=== PATIENT | male | born 1945 | race Caucasian/White ===

== ENCOUNTER 2019-11-17 09:21 | Inpatient (IN) ==
[2019-11-17] MEDS ORDERED: D5% in Water 1,000 ML IVC PRN (15:40)
[2019-11-17] MEDS ORDERED: *HR* Dextrose 50 % in Water (Syg) 50 ML SYRINGE IVP PRN (15:40)
[2019-11-17] MEDS ORDERED: Dextrose Gel 15 GM/37.5 ML TUBE PO PRN ×2 (15:40)
[2019-11-17] MEDS ORDERED: Hydrocortisone Rectal 2.5% CRM 28 GM TUBE RC PRN (15:44)
[2019-11-17] MEDS ORDERED: Triamcinolone Acet 0.1% CRM 15 GM TUBE TP PRN (15:44)
[2019-11-17] MEDS ORDERED: Nitroglycerin 0.4 MG TAB.SUBL SL PRN (15:44)
[2019-11-17] MEDS: *HR* Metformin 500 MG TABLET PO SCH (18:14)
[2019-11-17] MEDS: Insulin LISPRO 300 UNITS/3 ML VIAL SQ SCH ×2 (18:15→22:22)
[2019-11-17 18:54] LABS: Bilirubin,Urine Negative (Negative); Blood,Urine Trace-intact (Negative); Clarity,Urine Clear (Clear); Color,Urine Yellow (Yellow); Glucose,Urine (UA) Normal (Normal); Ketones,Urine Negative (Negative); Leukocyte Esterase,Urine Negative (Negative); Nitrite,Urine Negative (Negative); PH,Urine 8.5 pH Units (5.0-8.0); Protein,Urine Negative (Neg-Trace); Urobilinogen,Urine Normal (Normal)
[2019-11-17 19:00] LABS: RBC,Urine 0-3 per hpf (0-3); Squamous Epithelial Cell,Urine Few per hpf (None-Few); WBC,Urine 0-3 per hpf (0-3)
[2019-11-17 19:01] LABS: Bacteria,Urine None Seen per hpf (None-Few)
[2019-11-17] MEDS: metroNIDAZOLE 500 MG TABLET PO SCH (22:21)
[2019-11-17] MEDS: Gabapentin 300 MG CAPSULE PO SCH (22:22)
[2019-11-17] MEDS: Sulfamethoxazole/Trimeth DS 1 EACH TABLET PO SCH (22:22)
[2019-11-18] MEDS: *HR* OxyCODONE Immed Rel 5 MG TABLET PO PRN ×2 (01:55→15:01)
[2019-11-18] MEDS ORDERED: *HR* Enoxaparin 40 MG/0.4 ML SYRINGE SQ SCH (06:00)
[2019-11-18 06:16] LABS: Basophils % 0.2 %; Eosinophils # 0.3 K/mcL (0.0-0.6); Eosinophils % 1.8 %; Hematocrit 32.5 % (37.5-50.1); Hemoglobin 9.9 g/dL (12.9-16.9); Immature Granulocytes % 0.4 % (0-4); Lymphocytes # 2.8 K/mcL (0.6-4.6); Lymphocytes % 17.3 %; Mean Corpuscular HGB Conc 30.5 g/dL (31.6-35.5); Mean Corpuscular Hemoglobin 28.5 pg (28.0-33.3); Mean Corpuscular Volume 93.7 fL (83.0-100.0); Mean Platelet Volume 10.3 fL (9.4-12.4); Monocytes # 1.4 K/mcL (0.0-1.3); Monocytes % 8.5 %; Neutrophils # 11.5 K/mcL (1.6-8.9); Platelet Count 321 K/mcL (140-400); Red Blood Count 3.47 M/mcL (4.19-5.50); Red Cell Distribution Width 19.4 % (11.5-14.5); Segmented Neutrophils % 71.8 %
[2019-11-18] MEDS: Insulin LISPRO 300 UNITS/3 ML VIAL SQ SCH ×4 (07:47→23:15)
[2019-11-18] MEDS: *HR* Metformin 500 MG TABLET PO SCH ×2 (08:02→17:10)
[2019-11-18] MEDS: Isosorbide MONOnitrate (24 HR) 60 MG TAB.ER.24H PO SCH (08:05)
[2019-11-18] MEDS: Gabapentin 300 MG CAPSULE PO SCH ×3 (08:05→23:19)
[2019-11-18] MEDS: Metoprolol XL (24 HR) Succ 25 MG TAB.ER.24H PO SCH (08:05)
[2019-11-18] MEDS: predniSONE 10 MG TABLET PO SCH (08:05)
[2019-11-18] MEDS: Aspirin Enteric Coated 81 MG Tablet PO SCH (08:06)
[2019-11-18] MEDS: Sulfamethoxazole/Trimeth DS 1 EACH TABLET PO SCH ×2 (08:06→23:19)
[2019-11-18 08:52] LABS: BUN/Creatinine Ratio 14 (6-26); Blood Urea Nitrogen 10 mg/dL (8-23); Calcium 7.6 mg/dL (8.6-10.3); Carbon Dioxide 26 mEq/L (23-29); Chloride 104 mEq/L (98-107); Glucose 80 mg/dL (70-105); Osmolality,Calculated 278 (280-300); Sodium 135 mEq/L (136-145); eGFR For African Americans > 60 (> 60); eGFR For Non-African Americans > 60 (> 60)
[2019-11-18] MEDS: metroNIDAZOLE 500 MG TABLET PO SCH ×3 (09:11→23:19)
[2019-11-18] MEDS ORDERED: INFLIXIMAB DYYB IVPB SCH (11:00)
[2019-11-18] MEDS ORDERED: SODIUM CHLORIDE 0.9% IVPB SCH (11:00)
[2019-11-19 06:00] LABS: Basophils % 0.1 %; Eosinophils # 0.2 K/mcL (0.0-0.6); Eosinophils % 1.7 %; Hematocrit 32.2 % (37.5-50.1); Immature Granulocytes % 0.4 % (0-4); Lymphocytes # 2.5 K/mcL (0.6-4.6); Lymphocytes % 18.6 %; Mean Corpuscular HGB Conc 31.1 g/dL (31.6-35.5); Mean Corpuscular Hemoglobin 28.7 pg (28.0-33.3); Mean Corpuscular Volume 92.3 fL (83.0-100.0); Mean Platelet Volume 8.7 fL (9.4-12.4); Monocytes # 1.1 K/mcL (0.0-1.3); Monocytes % 8.4 %; Neutrophils # 9.6 K/mcL (1.6-8.9); Platelet Count 438 K/mcL (140-400); Red Blood Count 3.49 M/mcL (4.19-5.50); Red Cell Distribution Width 19.3 % (11.5-14.5); Segmented Neutrophils % 70.8 %; White Blood Count 13.6 K/mcL (4.3-11.1)
[2019-11-19 06:16] LABS: BUN/Creatinine Ratio 14 (6-26); Blood Urea Nitrogen 9 mg/dL (8-23); Calcium 7.7 mg/dL (8.6-10.3); Carbon Dioxide 24 mEq/L (23-29); Chloride 107 mEq/L (98-107); Glucose 82 mg/dL (70-105); Osmolality,Calculated 282 (280-300); Sodium 137 mEq/L (136-145); eGFR For African Americans > 60 (> 60); eGFR For Non-African Americans > 60 (> 60)
[2019-11-19] MEDS: *HR* OxyCODONE Immed Rel 5 MG TABLET PO PRN (07:44)
[2019-11-19] MEDS: Insulin LISPRO 300 UNITS/3 ML VIAL SQ SCH ×4 (10:21→20:46)
[2019-11-19] MEDS: Isosorbide MONOnitrate (24 HR) 60 MG TAB.ER.24H PO SCH (10:25)
[2019-11-19] MEDS: predniSONE 10 MG TABLET PO SCH (10:25)
[2019-11-19] MEDS: *HR* Metformin 500 MG TABLET PO SCH ×2 (10:26→16:53)
[2019-11-19] MEDS: Metoprolol XL (24 HR) Succ 25 MG TAB.ER.24H PO SCH (10:26)
[2019-11-19] MEDS: metroNIDAZOLE 500 MG TABLET PO SCH ×3 (10:26→20:46)
[2019-11-19] MEDS: Gabapentin 300 MG CAPSULE PO SCH ×3 (10:26→20:44)
[2019-11-19] MEDS: Aspirin Enteric Coated 81 MG Tablet PO SCH (10:26)
[2019-11-19] MEDS: Sulfamethoxazole/Trimeth DS 1 EACH TABLET PO SCH ×2 (10:26→20:43)
[2019-11-20] MEDS: *HR* OxyCODONE Immed Rel 5 MG TABLET PO PRN ×3 (02:05→22:15)
[2019-11-20 06:17] LABS: Basophils % 0.1 %; Eosinophils # 0.2 K/mcL (0.0-0.6); Eosinophils % 1.1 %; Hematocrit 27.5 % (37.5-50.1); Hemoglobin 8.4 g/dL (12.9-16.9); Immature Granulocytes % 0.7 % (0-4); Lymphocytes # 2.4 K/mcL (0.6-4.6); Mean Corpuscular HGB Conc 30.5 g/dL (31.6-35.5); Mean Corpuscular Volume 91.7 fL (83.0-100.0); Mean Platelet Volume 9.1 fL (9.4-12.4); Monocytes # 1.4 K/mcL (0.0-1.3); Monocytes % 9.5 %; Neutrophils # 10.8 K/mcL (1.6-8.9); Platelet Count 436 K/mcL (140-400); Red Cell Distribution Width 18.8 % (11.5-14.5); Segmented Neutrophils % 72.6 %; White Blood Count 14.9 K/mcL (4.3-11.1)
[2019-11-20 06:31] LABS: BUN/Creatinine Ratio 16 (6-26); Blood Urea Nitrogen 13 mg/dL (8-23); Calcium 7.6 mg/dL (8.6-10.3); Carbon Dioxide 24 mEq/L (23-29); Chloride 108 mEq/L (98-107); Glucose 108 mg/dL (70-105); Osmolality,Calculated 283 (280-300); Sodium 136 mEq/L (136-145); eGFR For African Americans > 60 (> 60); eGFR For Non-African Americans > 60 (> 60)
[2019-11-20] MEDS: Insulin LISPRO 300 UNITS/3 ML VIAL SQ SCH ×4 (08:35→22:23)
[2019-11-20] MEDS: Isosorbide MONOnitrate (24 HR) 60 MG TAB.ER.24H PO SCH ×2 (09:23→10:08)
[2019-11-20] MEDS: *HR* Metformin 500 MG TABLET PO SCH ×2 (09:23→15:45)
[2019-11-20] MEDS: predniSONE 10 MG TABLET PO SCH (09:23)
[2019-11-20] MEDS: Aspirin Enteric Coated 81 MG Tablet PO SCH (09:23)
[2019-11-20] MEDS: Sulfamethoxazole/Trimeth DS 1 EACH TABLET PO SCH ×2 (09:24→22:14)
[2019-11-20] MEDS: Gabapentin 300 MG CAPSULE PO SCH ×3 (09:24→22:14)
[2019-11-20] MEDS: metroNIDAZOLE 500 MG TABLET PO SCH ×3 (09:24→22:17)
[2019-11-20] MEDS: Metoprolol XL (24 HR) Succ 25 MG TAB.ER.24H PO SCH (16:10)
[2019-11-21] MEDS: *HR* OxyCODONE Immed Rel 5 MG TABLET PO PRN ×2 (04:24→23:12)
[2019-11-21 05:29] LABS: Basophils % 0.2 %; Eosinophils # 0.1 K/mcL (0.0-0.6); Eosinophils % 0.9 %; Hematocrit 26.3 % (37.5-50.1); Hemoglobin 8.1 g/dL (12.9-16.9); Immature Granulocytes % 0.5 % (0-4); Lymphocytes # 1.6 K/mcL (0.6-4.6); Mean Corpuscular HGB Conc 30.8 g/dL (31.6-35.5); Mean Corpuscular Hemoglobin 28.4 pg (28.0-33.3); Mean Corpuscular Volume 92.3 fL (83.0-100.0); Monocytes # 1.4 K/mcL (0.0-1.3); Monocytes % 10.9 %; Neutrophils # 9.4 K/mcL (1.6-8.9); Platelet Count 398 K/mcL (140-400); Red Blood Count 2.85 M/mcL (4.19-5.50); Red Cell Distribution Width 18.7 % (11.5-14.5); Segmented Neutrophils % 74.5 %; White Blood Count 12.6 K/mcL (4.3-11.1)
[2019-11-21] MEDS: Insulin LISPRO 300 UNITS/3 ML VIAL SQ SCH ×4 (08:16→22:00)
[2019-11-21] MEDS: *HR* Metformin 500 MG TABLET PO SCH ×2 (08:26→16:52)
[2019-11-21] MEDS: Sulfamethoxazole/Trimeth DS 1 EACH TABLET PO SCH ×2 (08:27→22:03)
[2019-11-21] MEDS: Isosorbide MONOnitrate (24 HR) 60 MG TAB.ER.24H PO SCH (08:27)
[2019-11-21] MEDS: Aspirin Enteric Coated 81 MG Tablet PO SCH (08:27)
[2019-11-21] MEDS: Gabapentin 300 MG CAPSULE PO SCH ×3 (08:27→22:03)
[2019-11-21] MEDS: metroNIDAZOLE 500 MG TABLET PO SCH ×3 (08:27→22:03)
[2019-11-21] MEDS: predniSONE 10 MG TABLET PO SCH (08:27)
[2019-11-21 19:37] LABS: Hemoglobin 8.1 g/dL (12.9-16.9)
[2019-11-22 05:31] LABS: Basophils % 0.2 %; Eosinophils # 0.1 K/mcL (0.0-0.6); Eosinophils % 0.4 %; Hematocrit 26.2 % (37.5-50.1); Hemoglobin 8.2 g/dL (12.9-16.9); Immature Granulocytes % 0.4 % (0-4); Lymphocytes # 1.5 K/mcL (0.6-4.6); Lymphocytes % 10.9 %; Mean Corpuscular HGB Conc 31.3 g/dL (31.6-35.5); Mean Corpuscular Hemoglobin 29.1 pg (28.0-33.3); Mean Corpuscular Volume 92.9 fL (83.0-100.0); Mean Platelet Volume 8.9 fL (9.4-12.4); Monocytes # 1.2 K/mcL (0.0-1.3); Monocytes % 8.8 %; Neutrophils # 10.7 K/mcL (1.6-8.9); Platelet Count 385 K/mcL (140-400); Red Blood Count 2.82 M/mcL (4.19-5.50); Red Cell Distribution Width 18.7 % (11.5-14.5); Segmented Neutrophils % 79.3 %; White Blood Count 13.5 K/mcL (4.3-11.1)
[2019-11-22 05:45] LABS: BUN/Creatinine Ratio 11 (6-26); Blood Urea Nitrogen 9 mg/dL (8-23); Calcium 7.8 mg/dL (8.6-10.3); Carbon Dioxide 23 mEq/L (23-29); Chloride 103 mEq/L (98-107); Glucose 88 mg/dL (70-105); Osmolality,Calculated 272 (280-300); Potassium 4.2 mEq/L (3.5-5.1); Sodium 132 mEq/L (136-145); eGFR For African Americans > 60 (> 60); eGFR For Non-African Americans > 60 (> 60)
[2019-11-22] MEDS: Insulin LISPRO 300 UNITS/3 ML VIAL SQ SCH ×4 (08:04→20:33)
[2019-11-22] MEDS: Isosorbide MONOnitrate (24 HR) 60 MG TAB.ER.24H PO SCH (10:04)
[2019-11-22] MEDS: Gabapentin 300 MG CAPSULE PO SCH ×3 (10:05→21:13)
[2019-11-22] MEDS: predniSONE 10 MG TABLET PO SCH (10:05)
[2019-11-22] MEDS: *HR* Metformin 500 MG TABLET PO SCH ×2 (10:05→16:01)
[2019-11-22] MEDS: metroNIDAZOLE 500 MG TABLET PO SCH ×3 (10:05→21:14)
[2019-11-22] MEDS: Sulfamethoxazole/Trimeth DS 1 EACH TABLET PO SCH ×2 (10:05→21:14)
[2019-11-22] MEDS: Aspirin Enteric Coated 81 MG Tablet PO SCH (10:05)
[2019-11-22] MEDS: *HR* OxyCODONE Immed Rel 5 MG TABLET PO PRN ×2 (10:56→22:34)
[2019-11-22] MEDS ORDERED: methylPREDNISolone 125 MG/2 ML VIAL IVP ONE (13:35)
[2019-11-22 21:33] LABS: BUN/Creatinine Ratio 12 (6-26); Blood Urea Nitrogen 12 mg/dL (8-23); Calcium 7.5 mg/dL (8.6-10.3); Carbon Dioxide 22 mEq/L (23-29); Chloride 102 mEq/L (98-107); Glucose 176 mg/dL (70-105); Osmolality,Calculated 274 (280-300); Potassium 4.5 mEq/L (3.5-5.1); Sodium 130 mEq/L (136-145); eGFR For African Americans > 60 (> 60); eGFR For Non-African Americans > 60 (> 60)
[2019-11-22 21:36] LABS: Basophils % 0.1 %; Hematocrit 24.4 % (37.5-50.1); Hemoglobin 7.6 g/dL (12.9-16.9); Immature Granulocytes % 0.6 % (0-4); Lymphocytes # 0.3 K/mcL (0.6-4.6); Lymphocytes % 2.3 %; Mean Corpuscular HGB Conc 31.1 g/dL (31.6-35.5); Mean Corpuscular Hemoglobin 28.8 pg (28.0-33.3); Mean Corpuscular Volume 92.4 fL (83.0-100.0); Mean Platelet Volume 8.9 fL (9.4-12.4); Monocytes # 0.2 K/mcL (0.0-1.3); Monocytes % 1.8 %; Platelet Count 333 K/mcL (140-400); Red Blood Count 2.64 M/mcL (4.19-5.50); Red Cell Distribution Width 18.5 % (11.5-14.5); Segmented Neutrophils % 95.2 %; White Blood Count 12.6 K/mcL (4.3-11.1)
[2019-11-23] MEDS ORDERED: 0.9 % Sodium Chloride 500 ML ONE (00:50)
[2019-11-23 07:34] LABS: Basophils % 0.1 %; Immature Granulocytes % 0.4 % (0-4); Lymphocytes # 0.8 K/mcL (0.6-4.6); Lymphocytes % 6.2 %; Mean Corpuscular HGB Conc 32.1 g/dL (31.6-35.5); Mean Corpuscular Hemoglobin 29.3 pg (28.0-33.3); Mean Corpuscular Volume 91.2 fL (83.0-100.0); Mean Platelet Volume 8.4 fL (9.4-12.4); Monocytes % 7.5 %; Neutrophils # 11.6 K/mcL (1.6-8.9); Platelet Count 320 K/mcL (140-400); Red Blood Count 3.07 M/mcL (4.19-5.50); Red Cell Distribution Width 17.9 % (11.5-14.5); Segmented Neutrophils % 85.8 %; White Blood Count 13.5 K/mcL (4.3-11.1)
[2019-11-23] MEDS: Insulin LISPRO 300 UNITS/3 ML VIAL SQ SCH ×4 (07:55→20:03)
[2019-11-23 08:03] LABS: BUN/Creatinine Ratio 17 (6-26); Blood Urea Nitrogen 15 mg/dL (8-23); Calcium 7.7 mg/dL (8.6-10.3); Carbon Dioxide 24 mEq/L (23-29); Chloride 100 mEq/L (98-107); Glucose 81 mg/dL (70-105); Osmolality,Calculated 272 (280-300); Potassium 3.7 mEq/L (3.5-5.1); Sodium 131 mEq/L (136-145); eGFR For African Americans > 60 (> 60); eGFR For Non-African Americans > 60 (> 60)
[2019-11-23] MEDS: Gabapentin 300 MG CAPSULE PO SCH ×3 (09:45→20:09)
[2019-11-23] MEDS: Aspirin Enteric Coated 81 MG Tablet PO SCH (09:45)
[2019-11-23] MEDS: Sulfamethoxazole/Trimeth DS 1 EACH TABLET PO SCH ×2 (09:45→20:09)
[2019-11-23] MEDS: Isosorbide MONOnitrate (24 HR) 60 MG TAB.ER.24H PO SCH (09:45)
[2019-11-23] MEDS: metroNIDAZOLE 500 MG TABLET PO SCH ×3 (09:45→20:09)
[2019-11-23] MEDS: *HR* Metformin 500 MG TABLET PO SCH ×2 (09:45→16:41)
[2019-11-23] MEDS: predniSONE 10 MG TABLET PO SCH (09:46)
[2019-11-23 15:08] LABS: Basophils % 0.1 %; Eosinophils % 0.2 %; Hematocrit 24.5 % (37.5-50.1); Hemoglobin 7.9 g/dL (12.9-16.9); Immature Granulocytes % 0.3 % (0-4); Lymphocytes # 0.5 K/mcL (0.6-4.6); Mean Corpuscular HGB Conc 32.2 g/dL (31.6-35.5); Mean Corpuscular Hemoglobin 29.5 pg (28.0-33.3); Mean Corpuscular Volume 91.4 fL (83.0-100.0); Mean Platelet Volume 8.5 fL (9.4-12.4); Monocytes # 0.8 K/mcL (0.0-1.3); Monocytes % 6.7 %; Platelet Count 269 K/mcL (140-400); Red Blood Count 2.68 M/mcL (4.19-5.50); Segmented Neutrophils % 88.7 %; White Blood Count 12.4 K/mcL (4.3-11.1)
[2019-11-23] MEDS ORDERED: 0.9 % Sodium Chloride 250 ML ONE (16:22)
[2019-11-23 20:31] VITALS: BP 110/63
== END 2019-11-23 20:28 | disposition short-term general hospital (02) | DRG 945 ==
LOC: INPGRE 13:07
PROVIDERS: ADMIT Family Medicine; ATTEND Family Medicine